=== PATIENT | female | born 1965 | race Caucasian/White ===

== ENCOUNTER 2018-01-13 21:04 | Emergency (ER) | payer OTHER ==
[~2018-01-13] VITALS: Ht 165.1 cm; Wt 65.0 kg
[~2018-01-13 21:04] MED LIST: ALPR.25 PO; DIAZ2 PO; ENAL2.5T PO
[2018-01-13 21:12] VITALS: BP 190/89; PULSE 95; RESP 20; TEMP 98.3; O2SAT 99
[2018-01-13 22:24] LABS: AUTOMATED NEUTROPHIL # 3.2 TH/MM3 (1.8-7.7); BASOPHIL % 0.4 % (0.0-2.0); EOSINOPHIL # 0.1 TH/MM3 (0-0.4); EOSINOPHIL % 1.7 % (0.0-4.0); HEMATOCRIT 42.1 % (35.0-46.0); HEMOGLOBIN 14.2 GM/DL (11.6-15.3); LYMPH % 33.7 % (9.0-44.0); LYMPHOCYTE # 1.9 TH/MM3 (1.0-4.8); MEAN CELL VOLUME 88.4 FL (80.0-100.0); MEAN CORPUSCULAR HEMOGLOBIN 29.8 PG (27.0-34.0); MEAN CORPUSCULAR HGB CONC 33.7 % (32.0-36.0); MEAN PLATELET VOLUME 8.3 FL (7.0-11.0); MONO % 7.8 % (0.0-8.0); MONOCYTE # 0.4 TH/MM3 (0-0.9); NEUT % 56.4 % (16.0-70.0); PLATELET COUNT 257 TH/MM3 (150-450); RED BLOOD COUNT 4.76 MIL/MM3 (4.00-5.30); WHITE BLOOD COUNT 5.7 TH/MM3 (4.0-11.0)
[2018-01-13 22:34] LABS: BICARBONATE 31.4 MEQ/L (21.0-32.0); BLOOD UREA NITROGEN 8 MG/DL (7-18); CHLORIDE 104 MEQ/L (98-107); CREATININE 0.82 MG/DL (0.50-1.00); GLOMERULAR FILTRATION RATE 72 ML/MIN (>89); GLUCOSE,RANDOM 103 MG/DL (74-106); SODIUM (NA) 140 MEQ/L (136-145)
[2018-01-13 22:38] LABS: TROPONIN I LESS THAN 0.02 NG/ML (0.02-0.05)
[2018-01-14 00:32] VITALS: BP 204/94; PULSE 84; RESP 16; O2SAT 99
[2018-01-14] MEDS ORDERED: cloNIDine HCL 0.1 MG TAB PO ONE (00:45)
[2018-01-14 01:03] VITALS: BP 183/88; PULSE 66; RESP 16; O2SAT 98
[2018-01-14 01:33] VITALS: BP 149/70; PULSE 70; RESP 16; O2SAT 98
--- NOTE | 2018-01-14 01:56 | PD ---
HPI Chief Complaint: Numbness/Tingling Time Seen by Provider: 00:37 Travel History International Travel<30 days: No Contact w/Intl Traveler<30days: No Traveled to known affect area: No History of Present Illness HPI pt is 53 yr old female with multiple complaints BERMEO and HTN and chest pain GERD like pain and chronic vertigo and reports RUQ pain and her PCP said she felt a lump in her renal area and has a renal SONO scheduled outpt but has not had it yet. Pt seems very anxious and somatically pre- occupied . Pt appears listless but non toxic no apparent distress. 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 prolapse) Neurologic: Yes (migraines) Psychiatric: No Reproductive: Yes (prolapse vagina and bladder) Respiratory: No Myocardial Infarction: Yes Thyroid Disease: No ?: Not LMP: "8 MONTHS AGO" Past Surgical History Abdominal Surgery: Yes (inguinal hernia left side umbilical hernia) AICD: No Appendectomy: Yes Body Medical Devices: stent in the left iliac abd are Joint Replacement: No Oral Surgery: Yes (rhinoplasty t and a) Pacemaker: No Thoracic Surgery: Yes (breast reduction with a lift) Other Surgery: Yes Social History Alcohol Use: No Tobacco Use: No Substance Use: No Allergies-Medications (Allergen,Severity, Reaction): Coded Allergies: Sulfa (Sulfonamide Antibiotics) (Unverified Adverse Reaction, Intermediate , Nausea/Vomiting, 01/13/18) Reported Meds & Prescriptions Reported Meds & Active Scripts Active Cromolyn Nasal Inh 5.2 Mg/Act [place] 2 [place] EACH NARE QID 1 spray per nostril Fioricet (Jjltkojali-Fqhpgorlggscj-Brvggcpe) 50-300-40 Mg Cap 1 Cap PO Q4H PRN Clonidine (Clonidine HCl) 0.1 Mg Tab 0.1 Mg PO BID Reported Valium (Diazepam) 2 Mg Tab 2 Mg PO BID PRN Enalapril (Enalapril Maleate) 2.5 Mg Tab 2.5 Mg PO DAILY Review of Systems Except as stated in HPI: all other systems reviewed are Neg HENT: Positive: Headaches, Vertigo Gastrointestinal: Positive: Nausea, Abdominal Pain Physical Exam Narrative GENERAL: mildly anxious SKIN: Warm and dry. HEAD: Atraumatic. Normocephalic. EYES: Pupils equal and round. No scleral icterus. No injection or drainage. ENT: No nasal bleeding or discharge. Mucous membranes pink and moist. NECK: Trachea midline. No JVD. CARDIOVASCULAR: Regular rate and rhythm. RESPIRATORY: No accessory muscle use. Clear to auscultation. Breath sounds equal bilaterally. GASTROINTESTINAL: Abdomen soft, non-tender, nondistended. Hepatic and splenic margins not palpable. MUSCULOSKELETAL: Extremities without clubbing, cyanosis, or edema. No obvious deformities. NEUROLOGICAL: Awake and alert. No obvious cranial nerve deficits. Motor grossly within normal limits. Five out of 5 muscle strength in the arms and legs. Normal speech. PSYCHIATRIC: Appropriate mood and affect; insight and judgment normal. Data Data Last Documented VS Vital Signs Date Time Temp Pulse Resp B/P (MAP) Pulse Ox O2 Delivery O2 Flow Rate FiO2 01/14/18 03:51 01/14/18 02:26 67 16 98 Room Air 01/13/18 21:12 98.3 Orders Orders Electrocardiogram (01/13/18 21:19) Complete Blood Count With Diff (01/13/18 21:19) Basic Metabolic Panel (Bmp) (01/13/18 21:19) Ckmb (Isoenzyme) Profile (01/13/18 21:19) Troponin I (01/13/18 21:19) Clonidine (Catapres) (01/14/18 00:45) Iqrz-Mpnma-Ropr 325-50-40 Mg (Fioricet 3 (01/14/18 02:00) Al-Mag Hy-Si 40-40-4 Mg/Ml Liq (Mag-Al P (01/14/18 02:00) Lidocaine 2% Viscous (Xylocaine 2% Visco (01/14/18 02:00) Urinalysis - C+S If Indicated (01/14/18 02:20) Ed Discharge Order (01/14/18 04:03) Labs Laboratory Tests Test 01/13/18 21:30 01/14/18 02:25 White Blood Count 5.7 TH/MM3 Red Blood Count 4.76 MIL/MM3 Hemoglobin 14.2 GM/DL Hematocrit 42.1 % Mean Corpuscular Volume 88.4 FL Mean Corpuscular Hemoglobin 29.8 PG Mean Corpuscular Hemoglobin Concent 33.7 % Red Cell Distribution Width 13.0 % Platelet Count 257 TH/MM3 Mean Platelet Volume 8.3 FL Neutrophils (%) (Auto) 56.4 % Lymphocytes (%) (Auto) 33.7 % Monocytes (%) (Auto) 7.8 % Eosinophils (%) (Auto) 1.7 % Basophils (%) (Auto) 0.4 % Neutrophils # (Auto) 3.2 TH/MM3 Lymphocytes # (Auto) 1.9 TH/MM3 Monocytes # (Auto) 0.4 TH/MM3 Eosinophils # (Auto) 0.1 TH/MM3 Basophils # (Auto) 0.0 TH/MM3 CBC Comment DIFF FINAL Differential Comment Blood Urea Nitrogen 8 MG/DL Creatinine 0.82 MG/DL Random Glucose 103 MG/DL Calcium Level 9.0 MG/DL Sodium Level 140 MEQ/L Potassium Level 3.5 MEQ/L Chloride Level 104 MEQ/L Carbon Dioxide Level 31.4 MEQ/L Anion Gap 5 MEQ/L Estimat Glomerular Filtration Rate 72 ML/MIN Total Creatine Kinase 55 U/L Troponin I LESS THAN 0.02 NG/ML Urine Color LIGHT-YELLOW Urine Turbidity CLEAR Urine pH 7.0 Urine Specific [place] 1.003 Urine Protein NEG mg/dL Urine Glucose (UA) NEG mg/dL Urine Ketones NEG mg/dL Urine Occult Blood NEG Urine Nitrite NEG Urine Bilirubin NEG Urine Urobilinogen LESS THAN 2.0 MG/DL Urine Leukocyte Esterase TRACE Urine WBC LESS THAN 1 /hpf Microscopic Urinalysis Comment CULT NOT INDICATED MDM Medical Decision Making Medical Screen Exam Complete: Yes Emergency Medical Condition: Yes Differential Diagnosis headaceh NOS anxirey , GB disease gastritis , GERD, viral illness . other, Narrative Course labs bedside SONO GB by this MD are negative for pathology and headache treated and pt discharged to follow up out pt Procedures Procedure Narrative POC BEDSIDE SONO GB normal Diagnosis Primary Impression: Head ache Qualified Codes: R51 - Headache Patient Instructions: Acute Headache (ED), General Instructions Additional Instructions: Take your regular medication as prescribed and if your pressure becomes elevated you can take one clonidine and then wait a half an hour and repeat your blood pressure. You can take a maximum of 2 a day if it is needed. You must follow-up with your doctor to increase your enalapril. You can buy Zicam nasal swabs at the pharmacy and use them at the first sign of cold or congestion. Also you can use the cromolyn nasal spray I prescribed to help with your allergies. Fioricet is to be taken wit ibuprofen for headaches as needed . Scripts Cromolyn Nasal Inh (Cromolyn Nasal Inh) 5.2 Mg/Act [place] 2 SPRAY EACH NARE QID for Asthma Management, #1 INHALER 0 Refills 1 spray per nostril Prov: Dylan Reddy MD 01/14/18 Jatapcdmdr-Xiovapetpnlgv-Fdeysayo (Fioricet) 50-300-40 Mg Cap 1 CAP PO Q4H Y for HEADACHE, #15 CAP 0 Refills Prov: Dylan Reddy MD 01/14/18 Clonidine (Clonidine) 0.1 Mg Tab 0.1 MG PO BID for Blood Pressure Management, #15 TAB 0 Refills Prov: Dylan Reddy MD 01/14/18 Disposition: 01 DISCHARGE HOME Dylan Reddy MD Jan 14, 2018 01:56
[2018-01-14] MEDS ORDERED: LIDOCAINE VISCOUS 2% SOLN 15 ML UDC SWISH-SWAL ONE (02:00)
[2018-01-14] MEDS ORDERED: ALUMINUM/MAGNESIUM/SIMETH 30 ML CUP PO ONE (02:00)
[2018-01-14] MEDS ORDERED: ACETAMIN 325 MG/BUTALBITAL 50 MG/CAFFEINE 40 MG TAB PO ONE (02:00)
[2018-01-14 02:26] VITALS: BP 136/79; PULSE 67; RESP 16; O2SAT 98
[2018-01-14 02:43] LABS: BILIRUBIN, URINE NEG (NEG); BLOOD, URINE NEG (NEG); GLUCOSE,URINE NEG (NEG); KETONE, URINE NEG (NEG); NITRITE,URINE NEG (NEG); URINE COLOR LIGHT-YELLOW (YELLW/STRAW); URINE LEUKOCYTE ESTERASE TRACE (NEG)
[2018-01-14] MEDS ORDERED: BUTA1CAP PO (03:54)
[2018-01-14] MEDS ORDERED: CROM5.2S4 EACH NARE (03:54)
[2018-01-14] MEDS ORDERED: CLON0.1T PO (03:54)
--- NOTE | 2018-01-14 12:23 | EKG ---
Date Performed: 01/13/2018 Time Performed: 21:24:43 PTAGE: 53 years EKG: Sinus rhythm NORMAL ECG PREVIOUS TRACING : 05/04/2015 11.34 Since the previous tracing, no significant change noted DOCTOR: Walker Eldridge Interpretating Date/Time 01/14/2018 12:21:55
== END 2018-01-14 04:03 | disposition home or self-care (01) ==
LOC: NEPE 21:04
DX: R51 Headache (principal); I10 Essential (primary) hypertension; R07.9 Chest pain, unspecified
CPT/HCPCS: 80048; 81001; 82550; 84484; 85025; 93005; 99285